=== PATIENT | male | born 1950 | race Caucasian/White ===

== ENCOUNTER → 2019-05-31 11:30 | Outpatient (CLI) | payer OTHER, MEDICARE, SELFPAY ==
[2019-05-31 12:20] LABS: INR 3.9 (0.9-1.3); Prothrombin Time 46.2 SECONDS (10.1-12.7)
== END ==
PROVIDERS: Visit Provider Nurse Practitioner Family
DX: I48.2 Chronic atrial fibrillation (principal)
CPT/HCPCS: 36415; 85610